=== PATIENT | male | born 1990 | race African-American/Black ===

== ENCOUNTER 2019-01-26 10:31 | Inpatient (IN) | payer BC ==
[2019-01-26 11:46] LABS: ABS Neutrophils 3.6 10^3/ul (1.5-7.7); Hematocrit 47 % (42-52); Hemoglobin 14.9 g/dL (14.0-18.0); Mean Corpuscular HGB Conc 32 g/dL (31-36); Mean Corpuscular Hemoglobin 23 pg (27-31); Mean Corpuscular Volume 72 fL (80-94); Platelet Count 223 10^3/uL (150-450); Red Cell Distribution Width 15 % (10-15); White Blood Count 6.4 10^3/uL (3.5-10.8)
[2019-01-26 12:00] LABS: ALT 13 U/L (7-52); AST 17 U/L (13-39); Albumin 4.6 g/dL (3.2-5.2); Albumin/Globulin Ratio 1.6 (1-3); Alkaline Phosphatase 70 U/L (34-104); Anion Gap 9 mmol/L (2-11); BUN/Creatinine Ratio 12.1 (8-20); Blood Urea Nitrogen 13 mg/dL (6-24); CO2 Carbon Dioxide 24 mmol/L (22-32); Calcium 9.7 mg/dL (8.6-10.3); Chloride 105 mmol/L (101-111); EGFR African American 99.6 (>60); EGFR Non-African American 82.3 (>60); Globulin 2.8 g/dL (2-4); Glucose 82 mg/dL (70-100); Potassium 3.9 mmol/L (3.5-5.0); Sodium 138 mmol/L (135-145); Total Protein 7.4 g/dL (6.4-8.9)
[2019-01-26 12:16] LABS: Acetaminophen < 15 mcg/mL; Alcohol < 10 mg/dL (<10); Salicylate < 2.50 mg/dL (<30)
[2019-01-26 12:24] LABS: ABS Eosinophils 0.3 10^3/ul (0-0.6); ABS Lymphocytes 1.9 10^3/ul (1.0-4.8); ABS Monocytes 0.6 10^3/ul (0-0.8); Eosinophil % 5.4 %; Lymphocyte % 29.5 %; Nucleated Red Blood Cells % 0.2
--- NOTE | 2019-01-26 12:36 | ED ---
Psychiatric Complaint - HPI Summary HPI Summary: This patient is a 28-year-old male presenting to the ED with feelings of hopelessness. He states he has been feeling more depressed recently and recently got out of a relationship. He endorses some suicidal ideation over the past several weeks, however denies this currently. He denies any plan. He does endorse alcohol use, however not within the last 24 hours. He does not see a counselor. He takes no medications. He has never been to [facility] psychiatric facility in the past. He has no past medical history and takes no other medications. - History Of Current Complaint Chief Complaint: EDMentalHealth Time Seen by Provider: 01/26/19 10:41 Hx Obtained From: Patient Onset/Duration: Sudden Onset Timing: Constant Severity Initially: Moderate Severity Currently: Moderate Character: Depressed Aggravating Factor(s): Nothing Alleviating Factor(s): Nothing Associated Signs And Symptoms: Positive: Negative Has Suicidal: Reports: Thoughts - Allergies/Home Medications Allergies/Adverse Reactions: Allergies Allergy/AdvReac Type Severity Reaction Status Date / Time No Known Allergies Allergy Verified 01/26/19 10:39 Home Medications: Home Medications NK [No Home Medications Reported] 01/26/19 [History Confirmed 01/26/19] PMH/Surg Hx/FS Hx/Imm Hx Previously Healthy: Yes - Immunization History Hx Pertussis Vaccination: No Immunizations Up to Date: Yes Infectious Disease History: No Infectious Disease History: Denies: Traveled Outside the [place] in Last 30 Days - Social History Occupation: Unemployed Lives: Alone Alcohol Use: Occasionally Hx Substance Use: No Substance Use Type: Reports: None Hx Tobacco Use: No Smoking Status (MU): Never Smoked Tobacco Review of Systems Negative: Fever, Chills, Fatigue, Skin Diaphoresis Negative: Palpitations, Chest Pain Negative: Shortness Of Breath, Cough Genitourinary: Negative Positive: no symptoms reported, see HPI Negative: Arthralgia, Myalgia Negative: Headache, Weakness, Paresthesia, Numbness Positive: Depressed. Negative: Anxious All Other Systems Reviewed And Are Negative: Yes Physical Exam Triage Information Reviewed: Yes Vital Signs On Initial Exam: Initial Vitals Temp Pulse Resp BP Pulse Ox 98.4 F 77 18 140/94 98 01/26/19 10:38 01/26/19 10:38 01/26/19 10:38 01/26/19 10:38 01/26/19 10:38 Vital Signs Reviewed: Yes Appearance: Positive: Well-Appearing, Well-Nourished Skin: Positive: Warm, Skin Color Reflects Adequate Perfusion Head/Face: Positive: Normal Head/Face Inspection Eyes: Positive: EOMI, TESSA, Conjunctiva Clear Neck: Positive: Supple, No Lymphadenopathy Respiratory/Lung Sounds: Positive: Clear to Auscultation, Breath Sounds Present Cardiovascular: Positive: Pulses are Symmetrical in both Upper and Lower Extremities Musculoskeletal: Positive: Strength/ROM Intact Neurological: Positive: Speech Normal Psychiatric: Positive: Affect/Mood Appropriate, Depressed AVPU Assessment: Alert Procedures - Sedation Patient Received Moderate/Deep Sedation with Procedure: No Diagnostics - Vital Signs Vital Signs Temp Pulse Resp BP Pulse Ox 01/26/19 10:38 98.4 F 77 18 140/94 98 - Laboratory Lab Results: Lab Results 01/26/19 01/26/19 Range/Units 11:25 11:25 WBC 6.4 (3.5-10.8) 10^3/uL RBC 6.50 H (4.18-5.48) 10^6 /uL Hgb 14.9 (14.0-18.0) g/dL Hct 47 (42-52) % MCV 72 L (80-94) fL MCH 23 L (27-31) pg MCHC 32 (31-36) g/dL RDW 15 (10-15) % Plt Count 223 (150-450) 10^3/uL MPV 9.0 (7.4-10.4) fL Neut % (Auto) 55.8 % Lymph % (Auto) 29.5 % Summers % (Auto) 8.8 % Eos % (Auto) 5.4 % Baso % (Auto) 0.5 % Absolute Neuts (auto) 3.6 (1.5-7.7) 10^3/ul Absolute Lymphs (auto) 1.9 (1.0-4.8) 10^3/ul Absolute Monos (auto) 0.6 (0-0.8) 10^3/ul Absolute Eos (auto) 0.3 (0-0.6) 10^3/ul Absolute Basos (auto) 0.0 (0-0.2) 10^3/ul Absolute Nucleated RBC 0.0 10^3/ul Nucleated RBC % 0.2 Sodium 138 (135-145) mmol/L Potassium 3.9 (3.5-5.0) mmol/L Chloride 105 (101-111) mmol/L Carbon Dioxide 24 (22-32) mmol/L Anion Gap 9 (2-11) mmol/L BUN 13 (6-24) mg/dL Creatinine 1.07 (0.67-1.17) mg/dL Est GFR ( Amer) 99.6 (>60) Est GFR (Non-Af Amer) 82.3 (>60) BUN/Creatinine Ratio 12.1 (8-20) Glucose 82 (70-100) mg/dL Calcium 9.7 (8.6-10.3) mg/dL Total Bilirubin 1.30 H (0.2-1.0) mg/dL AST 17 (13-39) U/L ALT 13 (7-52) U/L Alkaline Phosphatase 70 (34-104) U/L Total Protein 7.4 (6.4-8.9) g/dL Albumin 4.6 (3.2-5.2) g/dL Globulin 2.8 (2-4) g/dL Albumin/Globulin Ratio 1.6 (1-3) TSH 0.30 L (0.34-5.60) mcIU/mL Salicylates < 2.50 (<30) mg/dL Acetaminophen < 15 mcg/mL Serum Alcohol < 10 (<10) mg/dL Result Diagrams: 01/26/19 11:25 01/26/19 11:25 Lab Statement: Any lab studies that have been ordered have been reviewed, and results considered in the medical decision making process. Course/Dx - Course Course Of Treatment: Patient's evaluated for depression which is been worsening over the past 2 weeks. He is currently homeless. He states he does drink alcohol, however is not had any alcohol was 24 hours. He denies drug use. Recently got out of a relationship and is feeling more depressed lately. He does endorse some suicidal ideation, however denies is currently. He denies any plan. He states he is safe at this time. He is cleared for mental health evaluation at 11:55 AM. MHE completed. Per Dr. Mancia, will be voluntarily admitted with dx of unspecified depression. - Differential Dx/Clinical Impression Differential Diagnosis/HQI/PQRI: Positive: Depression, Suicidal Ideation Provider Diagnosis: Depression - Physician Notifications Instructed by Provider To: Admit As Inpatient - per Dr. Mancia Discharge ED - Sign-Out/Discharge Documenting (check all that apply): Patient Departure - Discharge Plan Condition: Fair Disposition: ADMITTED TO [facility] - Billing Disposition and Condition Condition: FAIR Disposition: Admitted to [facility] - Attestation Statements Provider Attestation: pt seen by midlevel provider independently, based on their assessment, it was not necessary to present the case to me but I was available for consultation. I did not form a physician-patient relationship with the patient. The chart however, has been reviewed. am signing this note strictly in an administrative capacity.
[2019-01-26] MEDS ORDERED: Acetaminophen TAB* 325 MG PO PRN (23:19)
[2019-01-26] MEDS ORDERED: Al Hydrox/Mg Hydrox/Simet LIQ* 30 ML UDC PO PRN (23:19)
[2019-01-27 06:42] LABS: HDL Cholesterol 33.5 mg/dL
[2019-01-27] MEDS: Vitamin THERAPEUTIC TAB PO SCH (08:44)
[2019-01-27] MEDS ORDERED: Influenza VAC *QUAD* 2019-20* 0.5 ML SYRINGE IM ONE (09:00)
--- NOTE | 2019-01-27 11:09 | HP ---
H&P (Free Text) History and Physical: Justification for admission: Immediate Safety. CC " I cant do it any more" The patient was brought to [facility] by police after he was stopped for not having registration and seemed to be hopeless. The patient reported that over the last month he was evicted, had to give up his cat, and his girlfriend of 1.5 years recently broke up with him. He has been living in his car and is worried that the police towed his car. He plans to call his work and tell them he is in the hospital. The patient reported not having a support network and feels that he pushes help away and is not able to talk about the things that are bothering him. The patient denied access to firearms or stockpiles of medications. The patient reported poor sleep and appetite. The patient denied homicidal ideation intent or plan. The patient denied auditory and/ or visual hallucinations. MDD Reported feeling depressed having crying spells , feeling empty inside, with feelings of hopelessness, and worthlessness.Reported unintentional weight loss and diminished appetite with interruption of sleep. He denied loss of energy and recurrent thoughts of . Anxiety Denied having symptoms of anxiety such as having times where heart feels that it is beating out of chest , sweaty palms, or shallow breathing. Denied having uncomfortable or intrusive thoughts. Denied feeling restless, high strung, or worrying too much most of the time. Bipolar Denied symptoms of jony such as having many ideas at once. Denied increased talkativeness where no one can interrupt. Denied feeling irritable most of the time while having an persistent abundance of energy most of the day without the use of energy drinks, stimulants, or recreational drug use. Denied an increase in intensity in goal directed activities. Denied having the decreased need to sleep for days , having prolonged elevated mood , or feeling on top of the world. Denied impulsive risky sexual encounters. Denied spending money recklessly , going on spending sprees wiping out savings. Denied impulsively traveling out of town or country, having super myles, and unrealistic wealth or fame. Psychosis Does not endorse hearing things that other people do not hear or seeing things other people do not see. Denied feeling that TV is making references. Denied feeling that people are spying , following , or reading their thoughts. Phobias: Patient denied having excessive fear of a particular thing or situation. Eating disorders: Patient denied having excessive eating habits or feelings of guilt after eating. Denied repeated episodes of self induced vomiting after eating. PTSD Denied flashbacks, nightmares and avoidance of a prior traumatic event. PAST PSYCHIATRIC HISTORY: Prior Diagnosis : None History of past Psychiatric Hospitalizations: No prior psychiatric admission. History of past suicide/homicide attempts : 2 past suicide attempts one 3 months ago that involved overdose of pills and attempted to hang himself several years ago. No self injurious behaviors. No history of violence. Outpatient follow-up: None Medications: No past trials of medications Guardianship: None. FAMILY HISTORY: - Suicide: Denied family history of suicide. - Mental illness: Denied a history of mental health in immediate family members. - Substance abuse: Denied substance abuse among family members. SUBSTANCE ABUSE HISTORY: - EtOH: Uses during social occasions no DUIs, blackouts, - Tobacco: 1PPD - Cannabis: Denied - Heroin: Denied - Cocaine: Denied - Substance abuse treatment: Denied past substance abuse treatment SOCIAL HISTORY: - Denied a history of childhood physical and or sexual abuse Born in [place], [place] and raised by his grandmother. - Education: Some College No history of special education. 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 - Legal history: Denied - service history: Denied PAST MEDICAL HISTORY: Denied heart disease, diabetes, cancer and/ or other medical conditions. - Allergies: Denied drug or other allergies. Physical Exam: Please see ED note Mental Status Exam on Admission APPEARANCE : 28 year old male who appears stated age. Patient appears to have fair hygiene and grooming. BEHAVIOR: Cooperative , calm EYE CONTACT: Fair PSYCHOMOTOR ACTIVITY: Mild psychomotor retardation. MOVEMENTS: No abnormal movements observed. SPEECH : slow rate, rhythm, low volume MOOD : "Sad " AFFECT : Type is depressed Range is restricted Mood Congruent THOUGHT PROCESS: Formulated and organized in a logical, linear goal directed manner. No flight of ideas, neologism (made up words) , perseveration , tangential , loose associations , or circumstantiality. THOUGHT CONTENT: no delusions, obsessions, phobias or preoccupations. PERCEPTION: No current auditory or visual hallucinations. Doesnt appear to be responding to internal cues. No evidence of depersonalization , de-realization, or illusions SUICIDALITY Suicidal ideation HOMICIDALITY Denied homicidal ideation, intent or plan. Insight/judgment: Poor insight and judgment ORIENTATION: Oriented to self, location, and time. Diagnosis on Admission: Major depressive disorder, severe. Tobacco use disorder. Assessment: 28 year old male with no prior psychiatric history and current suicidal ideation came to the hospital and was admitted to the BSU at [facility]. Plan #Admit to BSU, Q15 minute observation. Start regular diet. Encourage participation in activities on the milieu. #Patient evaluated in ED and was determined by the emergency room Physician to be medically fit for admission to the BSU. # Justification for Admission: For immediate safety per outlined in the [facility] Hygiene Code. # The patient requires psychiatric inpatient admission at this time to assure safety, receive treatment and work toward stabilization. # Labs ordered: CBC, CMP, UDS, TSH, HBA1c, TSH, Toxicology screen, Urine analysis, and lipid profile. # Start lexapro 10mg daily for depression # Obtain collateral information once release is signed. # Collaboration with Social Work Tobacco use disorder: nicotine supplement offered and put in place. #Goals before discharge include: To eliminate/ reduce suicidal ideation Tentative Discharge: Pending psychiatric stabilization The risks, benefits, and alternative treatment options were discussed as well as the risks of refusing treatment. After this discussion and an acknowledgement of this understanding was made. A risk/ benefit assessment of treatment was considered and discussed with the patient. When comparing the risks of treatment with the dangers of not receiving treatment, the benefits of treatment outweigh the treatment risks at this time. Risks of allergy, suicidal ideation, behavioral changes, dystonia, rashes, electrolyte imbalances, movement disorders, cardiac conduction changes, serotonin syndrome, metabolic risks were among some of the risks discussed. Acetaminophen (Tylenol Tab*) 650 mg PO Q4H PRN PRN Reason: PAIN or TEMP > 101 F Al Hydrox/Mg Hydrox/Simethicone (Maalox Plus*) 30 ml PO Q4H PRN PRN Reason: INDIGESTION Escitalopram Oxalate (Lexapro *) 10 mg PO DAILY [facility] Last Admin: 01/28/19 09:11 Dose: 10 mg Multivitamins (Theragran Tab*) 1 tab PO DAILY [facility] Last Admin: 01/28/19 09:11 Dose: 1 tab Nicotine (Nicotine Patch 21 Mg/24 Hr*) 1 patch TRANSDERM DAILY [facility] Last Admin: 01/28/19 09:13 Dose: 1 patch Pharmacy Profile Note (Nicotine Patch Removal Note*) 1 note FOLLOW UP 0600 [facility] Last Admin: 01/28/19 09:15 Dose: Not Given Sodium 138 mmol/L (135-145) 01/26/19 11:25 Potassium 3.9 mmol/L (3.5-5.0) 01/26/19 11:25 BUN 13 mg/dL (6-24) 01/26/19 11:25 Creatinine 1.07 mg/dL (0.67-1.17) 01/26/19 11:25 Hemoglobin A1c 5.7 % (4.0-5.6) H 01/27/19 05:51 Calcium 9.7 mg/dL (8.6-10.3) 01/26/19 11:25 AST 17 U/L (13-39) 01/26/19 11:25 ALT 13 U/L (7-52) 01/26/19 11:25 Triglycerides 78 mg/dL 01/27/19 05:51 Cholesterol 176 mg/dL 01/27/19 05:51 LDL Cholesterol 127 mg/dL 01/27/19 05:51
[2019-01-27] MEDS: Nicotine PATCH 21 MG/24 HR* PATCH TRANSDERM SCH (11:56)
[2019-01-27] MEDS: Escitalopram * 10 MG TAB PO SCH (12:29)
[2019-01-27 12:37] LABS: Free T4 0.92 ng/dL (0.61-1.12)
[2019-01-28] MEDS ORDERED: Nicotine PATCH 21 MG/24 HR* PATCH TRANSDERM SCH (08:00)
[2019-01-28] MEDS: Vitamin THERAPEUTIC TAB PO SCH (09:11)
[2019-01-28] MEDS: Escitalopram * 10 MG TAB PO SCH (09:11)
[2019-01-28] MEDS: Nicotine PATCH 21 MG/24 HR* PATCH TRANSDERM SCH (09:13)
[2019-01-28] MEDS: Nicotine Patch Removal NOTE FOLLOW UP SCH (09:15)
--- NOTE | 2019-01-28 11:26 | PN ---
Subjective - Subjective Date of Service: 01/28/19 Service Type: 12205 Hosp care 35 min high complexity Subjective: Nursing Report: Patient was visible on unit, no behavioral incidents. Did not Slept overnight. He is attending group activities. CC: "Okay" Patient was seen and evaluated in the common room. The patient reported he feels safe on the unit. He reported having more energy than he usually has and he did not sleep well overnight. He reported having adequate appetite. The patient reports attending and participating in day groups. Per nursing no behavioral issues or overnight events reported. Patient reported that he is tolerating medications without side effects. Objective - General Observations Appearance: Disheveled Appears Stated Age: Yes Stature: WNL Posture: WNL Eye Contact: Avoidant Behavior/Activity: Slowed - Interaction Observations Attitude Towards Examiner: Cooperative Stated Mood: Dysphoric Affect: Blunted Speech Pattern/Tone: Quiet Volume Thought Process: Impoverished Perception: WNL Thought Content: Depressive, Self-Deprecatory Hallucination Type: None Delusion Type: None - Cognitive Function Orientation: A&O x 4 Level of Consciousness: Awake - Medication Compliance Cooperative with Inpatient Medication Regimen: Yes - Group Participation Participates in Group Activities: Yes Assessment - Assessment Merits Inpatient Hospitalization: For Immediate Safety Clinical Impression: 28 year old Male with history of depression came to the hospital with severe depression and suicidal ideation and is currently admitted to the BSU at [facility]. Plan - Plan Treatment Plan: Name: ETHAN OLIVARES Birthdate: 1990 [id number] #Q30 minute observation with staff pass. Patient shows improvement in affect. #Patient evaluated in ED and was determined by the emergency room Physician to be medically fit for admission to the BSU. # Justification for Admission: For immediate safety per outlined in the [place] Mental Hygiene Code. # The patient requires psychiatric inpatient admission at this time to assure safety, receive treatment and work toward stabilization. # Labs ordered: CBC, CMP, UDS, TSH, HBA1c, TSH, Toxicology screen, Urine analysis, and lipid profile. # Start lexapro 10mg daily for depression and remeron 7.5mg qhs for sleep # Obtain collateral information once release is signed. # Collaboration with Social Work Tobacco use disorder: nicotine supplement offered and put in place. #Goals before discharge include: To eliminate/ reduce suicidal ideation Tentative Discharge: Pending psychiatric stabilization The risks, benefits, and alternative treatment options were discussed as well as the risks of refusing treatment. After this discussion and an acknowledgement of this understanding was made. A risk/ benefit assessment of treatment was considered and discussed with the patient. When comparing the risks of treatment with the dangers of not receiving treatment, the benefits of treatment outweigh the treatment risks at this time. Risks of allergy, suicidal ideation, behavioral changes, dystonia, rashes, electrolyte imbalances, movement disorders, cardiac conduction changes, serotonin syndrome, metabolic risks were among some of the risks discussed. Continued Medication Management: Continue Outpt Medication Medications: Current Medications Acetaminophen (Tylenol Tab*) 650 mg PO Q4H PRN PRN Reason: PAIN or TEMP > 101 F Al Hydrox/Mg Hydrox/Simethicone (Maalox Plus*) 30 ml PO Q4H PRN PRN Reason: INDIGESTION Escitalopram Oxalate (Lexapro *) 10 mg PO DAILY [facility] Last Admin: 01/28/19 09:11 Dose: 10 mg Mirtazapine (Remeron Tab*) 7.5 mg PO BEDTIME PRN PRN Reason: SLEEP Multivitamins (Theragran Tab*) 1 tab PO DAILY [facility] Last Admin: 01/28/19 09:11 Dose: 1 tab Nicotine (Nicotine Patch 21 Mg/24 Hr*) 1 patch TRANSDERM DAILY [facility] Last Admin: 01/28/19 09:13 Dose: 1 patch Pharmacy Profile Note (Nicotine Patch Removal Note*) 1 note FOLLOW UP 0600 [facility] Last Admin: 01/28/19 09:15 Dose: Not Given - Discharge Plan Discharge Plan: Inpatient Hospitalization
[2019-01-28] MEDS: Mirtazapine TAB* 15 MG PO PRN (20:42)
[2019-01-29] MEDS: Nicotine PATCH 21 MG/24 HR* PATCH TRANSDERM SCH (08:10)
[2019-01-29] MEDS: Escitalopram * 10 MG TAB PO SCH (08:10)
[2019-01-29] MEDS: Vitamin THERAPEUTIC TAB PO SCH (08:10)
[2019-01-29] MEDS: Nicotine Patch Removal NOTE FOLLOW UP SCH (08:12)
[2019-01-29] MEDS: Mirtazapine TAB* 15 MG PO PRN (21:07)
[2019-01-30] MEDS: Nicotine Patch Removal NOTE FOLLOW UP SCH (06:00)
[2019-01-30] MEDS: Nicotine PATCH 21 MG/24 HR* PATCH TRANSDERM SCH (08:53)
[2019-01-30] MEDS: Escitalopram * 10 MG TAB PO SCH (08:54)
[2019-01-30] MEDS: Vitamin THERAPEUTIC TAB PO SCH (08:54)
--- NOTE | 2019-01-30 17:13 | PN ---
Subjective - Subjective Date of Service: 01/30/19 Service Type: 41980 Hosp care 25 min moderate complexity Subjective: Valdemar was in bed and when asked how was he feeling he reports of feeling angry and didn't show any interest to continue. Hoever denies SI or HI. Objective - General Observations Appearance: Well Groomed Appears Stated Age: Yes Stature: WNL Posture: WNL Eye Contact: Avoidant Behavior/Activity: Agitated - Interaction Observations Attitude Towards Examiner: Evasive Stated Mood: Dysphoric Affect: Restricted Speech Pattern/Tone: Clear, Normal Volume Thought Process: Coherent, Goal Directed Perception: WNL Thought Content: WNL Hallucination Type: Denies Delusion Type: Denies - Cognitive Function Level of Consciousness: Awake, Alert Cognition: WNL Estimated Intelligence: Normal Judgment Within Normal Limits: No Ability to Make Reasonable Decisions: Moderately Impaired - Medication Compliance Cooperative with Inpatient Medication Regimen: Yes - Group Participation Participates in Group Activities: No Assessment - Assessment Clinical Impression: 28 year old Male with history of depression came to the hospital with severe depression and suicidal ideation and is currently admitted to the BSU at [facility]. Plan - Plan Treatment Plan: Name: VALDEMAR OLIVARES Birthdate: 1990 [id number] #Q30 minute observation with staff pass. Patient shows improvement in affect. #Patient evaluated in ED and was determined by the emergency room Physician to be medically fit for admission to the BSU. # Justification for Admission: For immediate safety per outlined in the [place] Mental Hygiene Code. # The patient requires psychiatric inpatient admission at this time to assure safety, receive treatment and work toward stabilization. # Labs ordered: CBC, CMP, UDS, TSH, HBA1c, TSH, Toxicology screen, Urine analysis, and lipid profile. # Start lexapro 10mg daily for depression and remeron 7.5mg qhs for sleep # Obtain collateral information once release is signed. # Collaboration with Social Work Tobacco use disorder: nicotine supplement offered and put in place. #Goals before discharge include: To eliminate/ reduce suicidal ideation Tentative Discharge: Pending psychiatric stabilization The risks, benefits, and alternative treatment options were discussed as well as the risks of refusing treatment. After this discussion and an acknowledgement of this understanding was made. A risk/ benefit assessment of treatment was considered and discussed with the patient. When comparing the risks of treatment with the dangers of not receiving treatment, the benefits of treatment outweigh the treatment risks at this time. Risks of allergy, suicidal ideation, behavioral changes, dystonia, rashes, electrolyte imbalances, movement disorders, cardiac conduction changes, serotonin syndrome, metabolic risks were among some of the risks discussed. Continued Medication Management: Continue Outpt Medication Medications: Current Medications Acetaminophen (Tylenol Tab*) 650 mg PO Q4H PRN PRN Reason: PAIN or TEMP > 101 F Al Hydrox/Mg Hydrox/Simethicone (Maalox Plus*) 30 ml PO Q4H PRN PRN Reason: INDIGESTION Escitalopram Oxalate (Lexapro *) 10 mg PO DAILY [facility] Last Admin: 01/30/19 08:54 Dose: 10 mg Mirtazapine (Remeron Tab*) 7.5 mg PO BEDTIME PRN PRN Reason: SLEEP Last Admin: 01/29/19 21:07 Dose: 7.5 mg Multivitamins (Theragran Tab*) 1 tab PO DAILY [facility] Last Admin: 01/30/19 08:54 Dose: 1 tab Nicotine (Nicotine Patch 21 Mg/24 Hr*) 1 patch TRANSDERM DAILY [facility] Last Admin: 01/30/19 08:53 Dose: 1 patch Pharmacy Profile Note (Nicotine Patch Removal Note*) 1 note FOLLOW UP 0600 [facility] Last Admin: 01/30/19 06:00 Dose: Not Given - Discharge Plan Discharge Plan: Outpatient Follow Up Outpatient Program: [facility]
[2019-01-30] MEDS: Mirtazapine TAB* 15 MG PO PRN (22:23)
[2019-01-31] MEDS: Nicotine Patch Removal NOTE FOLLOW UP SCH (08:54)
[2019-01-31] MEDS: Vitamin THERAPEUTIC TAB PO SCH (08:55)
[2019-01-31] MEDS: Escitalopram * 10 MG TAB PO SCH (08:55)
[2019-01-31] MEDS: Nicotine PATCH 21 MG/24 HR* PATCH TRANSDERM SCH (09:30)
[2019-01-31] MEDS ORDERED: Escitalopram * 10 MG TAB PO ONE (11:00)
[2019-01-31] MEDS ORDERED: Mirtazapine TAB* 15 MG PO PRN (15:08)
--- NOTE | 2019-01-31 15:08 | PN ---
Subjective - Subjective Date of Service: 01/31/19 Service Type: 70560 Hosp care 35 min high complexity Subjective: Nursing Report: Patient was visible on unit, no behavioral incidents. Did not Slept overnight. He is attending group activities. CC: "so- so " Patient was seen and evaluated in the common room. The patient reported he feels safe on the unit but has not interacted much with others. He is unable to identify someone in his life that he considers to be a source of support. Patient reported feeling stressed out to learn that his car was towed. He reported having adequate appetite. The patient reports attending and participating in day groups. Per nursing no behavioral issues or overnight events reported. Patient reported that he is tolerating medications without side effects. Objective - General Observations Appearance: Neat Appears Stated Age: Yes Stature: WNL Posture: Slumped Eye Contact: Avoidant Behavior/Activity: Slowed - Interaction Observations Attitude Towards Examiner: Cooperative Stated Mood: Dysphoric Affect: Blunted Speech Pattern/Tone: Quiet Volume Thought Process: Impoverished Perception: WNL Thought Content: Self-Deprecatory Thought Process: Lethality: Passive Wish Hallucination Type: None Delusion Type: None - Cognitive Function Orientation: A&O x 4 - Medication Compliance Cooperative with Inpatient Medication Regimen: Yes - Group Participation Participates in Group Activities: Yes Assessment - Assessment Merits Inpatient Hospitalization: For Immediate Safety Clinical Impression: 28 year old Male with history of depression came to the hospital with severe depression and suicidal ideation and is currently admitted to the BSU at [facility]. Plan - Plan Treatment Plan: Name: ETHAN OLIVARES Birthdate: 1990 [id number] #Q30 minute observation with staff pass and computer. #The patient requires psychiatric inpatient admission at this time to assure safety, receive treatment and work toward stabilization. # Increase lexapro to 20mg daily for depression and remeron 15mg qhs for sleep # Obtain collateral information once release is signed. # Collaboration with Social Work Tobacco use disorder: nicotine supplement offered and put in place. #Goals before discharge include: To eliminate/ reduce suicidal ideation Tentative Discharge: Pending psychiatric stabilization The risks, benefits, and alternative treatment options were discussed as well as the risks of refusing treatment. After this discussion and an acknowledgement of this understanding was made. A risk/ benefit assessment of treatment was considered and discussed with the patient. When comparing the risks of treatment with the dangers of not receiving treatment, the benefits of treatment outweigh the treatment risks at this time. Risks of allergy, suicidal ideation, behavioral changes, dystonia, rashes, electrolyte imbalances, movement disorders, cardiac conduction changes, serotonin syndrome, metabolic risks were among some of the risks discussed. Continued Medication Management: Continue Outpt Medication Medications: Current Medications Acetaminophen (Tylenol Tab*) 650 mg PO Q4H PRN PRN Reason: PAIN or TEMP > 101 F Al Hydrox/Mg Hydrox/Simethicone (Maalox Plus*) 30 ml PO Q4H PRN PRN Reason: INDIGESTION Escitalopram Oxalate (Lexapro *) 20 mg PO DAILY [facility] Mirtazapine (Remeron Tab*) 7.5 mg PO BEDTIME PRN PRN Reason: SLEEP Last Admin: 01/30/19 22:23 Dose: 7.5 mg Multivitamins (Theragran Tab*) 1 tab PO DAILY [facility] Last Admin: 01/31/19 08:55 Dose: 1 tab Nicotine (Nicotine Patch 21 Mg/24 Hr*) 1 patch TRANSDERM DAILY [facility] Last Admin: 01/31/19 09:30 Dose: Not Given Pharmacy Profile Note (Nicotine Patch Removal Note*) 1 note FOLLOW UP 0600 [facility] Last Admin: 01/31/19 08:54 Dose: 1 note - Discharge Plan Discharge Plan: Inpatient Hospitalization Outpatient Program: Private Clinician(s)
[2019-02-01] MEDS ORDERED: Lorazepam PYXIS KEY ONE (01:46)
[2019-02-01] MEDS: Nicotine PATCH 21 MG/24 HR* PATCH TRANSDERM SCH (08:43)
[2019-02-01] MEDS: Escitalopram * 20 MG TABLET PO SCH (08:44)
[2019-02-01] MEDS: Vitamin THERAPEUTIC TAB PO SCH (08:44)
[2019-02-01] MEDS: Nicotine Patch Removal NOTE FOLLOW UP SCH (08:45)
--- NOTE | 2019-02-01 14:11 | PN ---
Subjective - Subjective Date of Service: 02/01/19 Service Type: [id number] Hosp care 35 min high complexity Subjective: Nursing Report: Patient was visible on unit, no behavioral incidents. Poor sleep overnight and stays in bed most of the morning and afternoon CC: "I dont know what to do" Patient was seen and evaluated in the common room. The patient reported he doesnt speak with many people and doesnt ask for help. He reported not feeling any different than before. He reported having adequate appetite and poor sleep. Per nursing no behavioral issues or overnight events reported. Patient reported that he is tolerating medications without side effects. Objective - General Observations Appearance: Neat Appears Stated Age: Yes Stature: WNL Posture: Slumped Eye Contact: Avoidant Behavior/Activity: Slowed - Interaction Observations Attitude Towards Examiner: Anxious Stated Mood: Dysphoric Speech Pattern/Tone: Quiet Volume Thought Process: Impoverished Perception: WNL Thought Content: Self-Deprecatory Hallucination Type: None Delusion Type: None - Cognitive Function Orientation: A&O x 4 Level of Consciousness: Awake - Medication Compliance Cooperative with Inpatient Medication Regimen: Yes - Group Participation Participates in Group Activities: Partial Assessment - Assessment Merits Inpatient Hospitalization: For Immediate Safety Clinical Impression: 28 year old Male with history of depression came to the hospital with severe depression and suicidal ideation and is currently admitted to the BSU at [facility]. Plan - Plan Treatment Plan: Name: ETHAN OLIVARES Birthdate: 1990 [id number] #Q30 minute observation with staff pass and computer. #The patient requires psychiatric inpatient admission at this time to assure safety, receive treatment and work toward stabilization. # Continue lexapro to 20mg daily for depression # Start ambien 5mg qhs for sleep # D/C remeron # Obtain collateral information from his sister who plans to involve his family in his care. Patients baseline includes isolating himself and not asking for help. His sister lives in [place] and does not plan to come visit. # Collaboration with Social Work for follow up care plan Tobacco use disorder: nicotine supplement offered and put in place. #Goals before discharge include: To eliminate/ reduce suicidal ideation Tentative Discharge: Pending psychiatric stabilization The risks, benefits, and alternative treatment options were discussed as well as the risks of refusing treatment. After this discussion and an acknowledgement of this understanding was made. A risk/ benefit assessment of treatment was considered and discussed with the patient. When comparing the risks of treatment with the dangers of not receiving treatment, the benefits of treatment outweigh the treatment risks at this time. Risks of allergy, suicidal ideation, behavioral changes, dystonia, rashes, electrolyte imbalances, movement disorders, cardiac conduction changes, serotonin syndrome, metabolic risks were among some of the risks discussed. Sodium 138 mmol/L (135-145) 01/26/19 11:25 Potassium 3.9 mmol/L (3.5-5.0) 01/26/19 11:25 BUN 13 mg/dL (6-24) 01/26/19 11:25 Creatinine 1.07 mg/dL (0.67-1.17) 01/26/19 11:25 Hemoglobin A1c 5.7 % (4.0-5.6) H 01/27/19 05:51 Calcium 9.7 mg/dL (8.6-10.3) 01/26/19 11:25 AST 17 U/L (13-39) 01/26/19 11:25 ALT 13 U/L (7-52) 01/26/19 11:25 Triglycerides 78 mg/dL 01/27/19 05:51 Cholesterol 176 mg/dL 01/27/19 05:51 LDL Cholesterol 127 mg/dL 01/27/19 05:51 Continued Medication Management: Continue Outpt Medication Medications: Current Medications Acetaminophen (Tylenol Tab*) 650 mg PO Q4H PRN PRN Reason: PAIN or TEMP > 101 F Al Hydrox/Mg Hydrox/Simethicone (Maalox Plus*) 30 ml PO Q4H PRN PRN Reason: INDIGESTION Escitalopram Oxalate (Lexapro *) 20 mg PO DAILY [facility] Last Admin: 02/01/19 08:44 Dose: 20 mg Multivitamins (Theragran Tab*) 1 tab PO DAILY [facility] Last Admin: 02/01/19 08:44 Dose: 1 tab Nicotine (Nicotine Patch 21 Mg/24 Hr*) 1 patch TRANSDERM DAILY [facility] Last Admin: 02/01/19 08:43 Dose: 1 patch Pharmacy Profile Note (Nicotine Patch Removal Note*) 1 note FOLLOW UP 0600 [facility] Last Admin: 02/01/19 08:45 Dose: Not Given Zolpidem Tartrate (Ambien Tab*) 5 mg PO BEDTIME PRN PRN Reason: INSOMNIA - Discharge Plan Discharge Plan: Inpatient Hospitalization
[2019-02-01] MEDS: Zolpidem TAB* 5 MG PO PRN (21:13)
[2019-02-02] MEDS: Nicotine PATCH 21 MG/24 HR* PATCH TRANSDERM SCH (08:19)
[2019-02-02] MEDS: Escitalopram * 20 MG TABLET PO SCH (08:19)
[2019-02-02] MEDS: Vitamin THERAPEUTIC TAB PO SCH (08:20)
[2019-02-02] MEDS: Nicotine Patch Removal NOTE FOLLOW UP SCH (08:23)
[2019-02-02] MEDS: Nicotine* 2MG (FRUIT FLAVOR) GUM PO PRN ×4 (12:01→20:43)
--- NOTE | 2019-02-02 16:48 | PN ---
BSU: Group Therapy Note - Service Type Service Type: [id number] Group Psychotherapy - Group Participation Patient Participating in Group: Yes Level of Group Participation: Attentive, Spontaneously Participate Relatedness to Group: Well Related - Additional Group Comments Group Comments: Valdemar was among the most participatory attendees. The medication education group was interesting to him as it was relevant to a number of questions he had. He was polite and appropriate.
[2019-02-02] MEDS: Zolpidem TAB* 5 MG PO PRN (22:24)
[2019-02-03] MEDS: Nicotine Patch Removal NOTE FOLLOW UP SCH (08:38)
[2019-02-03] MEDS: Nicotine* 2MG (FRUIT FLAVOR) GUM PO PRN ×3 (08:42→19:14)
[2019-02-03] MEDS: Escitalopram * 20 MG TABLET PO SCH (08:42)
[2019-02-03] MEDS: Nicotine PATCH 21 MG/24 HR* PATCH TRANSDERM SCH (08:42)
[2019-02-03] MEDS: Vitamin THERAPEUTIC TAB PO SCH (08:42)
--- NOTE | 2019-02-03 15:09 | PN ---
Subjective - Subjective Date of Service: 02/03/19 Service Type: [id number] Hosp care 35 min high complexity Subjective: Nursing Report: Patient was visible on unit, no behavioral incidents. Slept 5 hours He is attending group activities. CC: "Better" Patient was seen and evaluated in the common room. The patient reported he feels better and plans to stay at his mothers house. He was seen pacing the hallway. He reported having adequate appetite and received 5 hours of sleep. The patient reports attending and participating in day groups. Per nursing no behavioral issues or overnight events reported. Patient reported that he is tolerating medications without side effects. Objective - General Observations Appearance: Disheveled Appears Stated Age: Yes Stature: WNL Posture: WNL Eye Contact: Average Behavior/Activity: WNL - Interaction Observations Attitude Towards Examiner: Cooperative Stated Mood: Euthymic Affect: Restricted Speech Pattern/Tone: Clear Thought Process: Coherent Perception: WNL Thought Content: WNL Hallucination Type: None Delusion Type: None - Cognitive Function Orientation: A&O x 4 Level of Consciousness: Awake Cognition: WNL - Medication Compliance Cooperative with Inpatient Medication Regimen: Yes - Group Participation Participates in Group Activities: Yes Assessment - Assessment Merits Inpatient Hospitalization: For Immediate Safety Clinical Impression: 28 year old Male with history of depression came to the hospital with severe depression and suicidal ideation and is currently admitted to the BSU at [facility]. Plan - Plan Treatment Plan: Name: ETHAN OLIVARES Birthdate: 1990 [id number] #Q30 minute observation with staff pass and computer. #The patient requires psychiatric inpatient admission at this time to assure safety, receive treatment and work toward stabilization. # Continue lexapro to 20mg daily for depression # D/C remeron and start trazodone 50mg qhs for sleep # Obtain collateral information from his mother obtained who confirmed no firearms and he will be staying with her. # Collaboration with Social Work for follow up care at [facility] Tobacco use disorder: nicotine supplement offered and put in place. #Goals before discharge include: To eliminate/ reduce suicidal ideation Tentative Discharge: Tomorrow The risks, benefits, and alternative treatment options were discussed as well as the risks of refusing treatment. After this discussion and an acknowledgement of this understanding was made. A risk/ benefit assessment of treatment was considered and discussed with the patient. When comparing the risks of treatment with the dangers of not receiving treatment, the benefits of treatment outweigh the treatment risks at this time. Risks of allergy, suicidal ideation, behavioral changes, dystonia, rashes, electrolyte imbalances, movement disorders, cardiac conduction changes, serotonin syndrome, metabolic risks were among some of the risks discussed. Sodium 138 mmol/L (135-145) 01/26/19 11:25 Potassium 3.9 mmol/L (3.5-5.0) 01/26/19 11:25 BUN 13 mg/dL (6-24) 01/26/19 11:25 Creatinine 1.07 mg/dL (0.67-1.17) 01/26/19 11:25 Hemoglobin A1c 5.7 % (4.0-5.6) H 01/27/19 05:51 Calcium 9.7 mg/dL (8.6-10.3) 01/26/19 11:25 AST 17 U/L (13-39) 01/26/19 11:25 ALT 13 U/L (7-52) 01/26/19 11:25 Triglycerides 78 mg/dL 01/27/19 05:51 Cholesterol 176 mg/dL 01/27/19 05:51 LDL Cholesterol 127 mg/dL 01/27/19 05:51 Continued Medication Management: Continue Outpt Medication Medications: Current Medications Acetaminophen (Tylenol Tab*) 650 mg PO Q4H PRN PRN Reason: PAIN or TEMP > 101 F Al Hydrox/Mg Hydrox/Simethicone (Maalox Plus*) 30 ml PO Q4H PRN PRN Reason: INDIGESTION Escitalopram Oxalate (Lexapro *) 20 mg PO DAILY [facility] Last Admin: 02/03/19 08:42 Dose: 20 mg Multivitamins (Theragran Tab*) 1 tab PO DAILY [facility] Last Admin: 02/03/19 08:42 Dose: 1 tab Nicotine (Nicotine Patch 21 Mg/24 Hr*) 1 patch TRANSDERM DAILY [facility] Last Admin: 02/03/19 08:42 Dose: 1 patch Nicotine Polacrilex (Nicotine Gum*) 2 mg PO Q2H PRN PRN Reason: CRAVING Last Admin: 02/03/19 08:42 Dose: 2 mg Pharmacy Profile Note (Nicotine Patch Removal Note*) 1 note FOLLOW UP 0600 [facility] Last Admin: 11/14/19 08:38 Dose: Not Given Trazodone HCl (Desyrel Tab*) 50 mg PO BEDTIME [facility] - Discharge Plan Discharge Plan: Inpatient Hospitalization
[2019-02-03] MEDS ORDERED: traZODone TAB* 50 MG TAB PO SCH (21:00)
[2019-02-04] MEDS: Nicotine PATCH 21 MG/24 HR* PATCH TRANSDERM SCH (08:50)
[2019-02-04] MEDS: Vitamin THERAPEUTIC TAB PO SCH (08:51)
[2019-02-04] MEDS: Escitalopram * 20 MG TABLET PO SCH (08:51)
[2019-02-04] MEDS: Nicotine Patch Removal NOTE FOLLOW UP SCH (08:51)
--- NOTE | 2019-02-04 10:19 | DS ---
Subjective - Subjective Service Types: [address] [facility] over 30 min Discharge Date: 02/04/19 Subjective: CC: " I am doing better" Patient looks forward to seeing his children and going back to work. He reported improvement of sleep last evening. The patient was seen and evaluated before discharge today. The patient reported having adequate appetite and sleep. The patient reports attending and participating in day groups. Per nursing no behavioral issues or overnight events reported. Patient reported tolerating medications without side effects. Justification for admission: Immediate Safety. CC " I cant do it any more" The patient was brought to [facility] by police after he was stopped for not having registration and seemed to be hopeless. The patient reported that over the last month he was evicted, had to give up his cat, and his girlfriend of 1.5 years recently broke up with him. He has been living in his car and is worried that the police towed his car. He plans to call his work and tell them he is in the hospital. The patient reported not having a support network and feels that he pushes help away and is not able to talk about the things that are bothering him. The patient denied access to firearms or stockpiles of medications. The patient reported poor sleep and appetite. The patient denied homicidal ideation intent or plan. The patient denied auditory and/ or visual hallucinations. MDD Reported feeling depressed having crying spells , feeling empty inside, with feelings of hopelessness, and worthlessness.Reported unintentional weight loss and diminished appetite with interruption of sleep. He denied loss of energy and recurrent thoughts of . Anxiety Denied having symptoms of anxiety such as having times where heart feels that it is beating out of chest , sweaty palms, or shallow breathing. Denied having uncomfortable or intrusive thoughts. Denied feeling restless, high strung, or worrying too much most of the time. Bipolar Denied symptoms of jony such as having many ideas at once. Denied increased talkativeness where no one can interrupt. Denied feeling irritable most of the time while having an persistent abundance of energy most of the day without the use of energy drinks, stimulants, or recreational drug use. Denied an increase in intensity in goal directed activities. Denied having the decreased need to sleep for days , having prolonged elevated mood , or feeling on top of the world. Denied impulsive risky sexual encounters. Denied spending money recklessly , going on spending sprees wiping out savings. Denied impulsively traveling out of town or country, having super myles, and unrealistic wealth or fame. Psychosis Does not endorse hearing things that other people do not hear or seeing things other people do not see. Denied feeling that TV is making references. Denied feeling that people are spying , following , or reading their thoughts. Phobias: Patient denied having excessive fear of a particular thing or situation. Eating disorders: Patient denied having excessive eating habits or feelings of guilt after eating. Denied repeated episodes of self induced vomiting after eating. PTSD Denied flashbacks, nightmares and avoidance of a prior traumatic event. PAST PSYCHIATRIC HISTORY: Prior Diagnosis : None History of past Psychiatric Hospitalizations: No prior psychiatric admission. History of past suicide/homicide attempts : 2 past suicide attempts one 3 months ago that involved overdose of pills and attempted to hang himself several years ago. No self injurious behaviors. No history of violence. Outpatient follow-up: None Medications: No past trials of medications Guardianship: None. FAMILY HISTORY: - Suicide: Denied family history of suicide. - Mental illness: Denied a history of mental health in immediate family members. - Substance abuse: Denied substance abuse among family members. SUBSTANCE ABUSE HISTORY: - EtOH: Uses during social occasions no DUIs, blackouts, - Tobacco: 1PPD - Cannabis: Denied - Heroin: Denied - Cocaine: Denied - Substance abuse treatment: Denied past substance abuse treatment SOCIAL HISTORY: - Denied a history of childhood physical and or sexual abuse Born in [place], [place] and raised by his grandmother. - Education: Some College No history of special education. 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 - Legal history: Denied - service history: Denied PAST MEDICAL HISTORY: Denied heart disease, diabetes, cancer and/ or other medical conditions. - Allergies: Denied drug or other allergies. Physical Exam: Please see ED note Mental Status Exam on Admission APPEARANCE : 28 year old male who appears stated age. Patient appears to have fair hygiene and grooming. BEHAVIOR: Cooperative , calm EYE CONTACT: Fair PSYCHOMOTOR ACTIVITY: Mild psychomotor retardation. MOVEMENTS: No abnormal movements observed. SPEECH : slow rate, rhythm, low volume MOOD : "Sad " AFFECT : Type is depressed Range is restricted Mood Congruent THOUGHT PROCESS: Formulated and organized in a logical, linear goal directed manner. No flight of ideas, neologism (made up words) , perseveration , tangential , loose associations , or circumstantiality. THOUGHT CONTENT: no delusions, obsessions, phobias or preoccupations. PERCEPTION: No current auditory or visual hallucinations. Doesnt appear to be responding to internal cues. No evidence of depersonalization , de-realization, or illusions SUICIDALITY Suicidal ideation HOMICIDALITY Denied homicidal ideation, intent or plan. Insight/judgment: Poor insight and judgment ORIENTATION: Oriented to self, location, and time. Diagnosis on Admission: Major depressive disorder, severe. Tobacco use disorder. Diagnosis on Discharge: Major depressive disorder, in partial remission. Tobacco use disorder. Condition at the time of discharge: At the time of discharge patient showed improvement of sleep and appetite. The patient was not a danger to self or others. The patient denied suicidal ideation, intent or plan. The patient denied homicidal targets, ideation, intent or plan. This patient participated in psychosocial rehabilitation and gained some insight into problems. The patient gained insight into mental illness, triggers, and treatment. The patient took medication as prescribed. The patient denied side effects of medication and objective signs of side effects were not evident. Therapy Resources were offered to the patient. Patient was given a supply of prescriptions at the time of discharge. The patient plans to attend follow up care with the follow up arrangements that were discussed and put in place. Patient was asked to keep appointments as scheduled, take medication as prescribed, have routine follow up care with their primary care physician and refrain from any use of alcohol or drugs. Objective - General Observations Appearance: Neat Appears Stated Age: Yes Stature: WNL Posture: WNL Eye Contact: Average Behavior/Activity: WNL - Interaction Observations Attitude Towards Examiner: Cooperative Stated Mood: Euthymic Affect: Full Speech Pattern/Tone: Appropriate Thought Process: Coherent Perception: WNL Thought Content: WNL Hallucination Type: None Delusion Type: None - Cognitive Function Orientation: A&O x 4 Level of Consciousness: Awake Judgment Within Normal Limits: Yes - Medication Compliance Cooperative with Inpatient Medication Regimen: Yes - Group Participation Participates in Group Activities: Yes Treatment Course & Assessment Clinical Course & Impression: Hospital course part A: 28 year old Male with history of depression came to the hospital with severe depression and suicidal ideation and is currently admitted to the B[facility] at [facility]. Hospital course part B: Labs ordered included CBC, CMP, UDS, TSH, HBA1c, TSH, Toxicology screen, Urine analysis, and lipid profile. Labs were reviewed and did not require the need for further evaluation. Vital signs were monitored during the course of admission. The patient was admitted to the adult behavioral unit and placed on 15 minute check for safety. At a later time the patient was on Q30 minute observation and staff pass privileges. With those limits being extended, patient was safe on all checks and there were no occurrence of behavioral incidents. The patient did well on the unit and went to groups. Interacted with peers had adequate sleep and regular appetite. Tolerated medication changes without side effects. Group therapy and services were offered. The risks, benefits, and alternative treatment options were discussed as well as of the risks of refusing treatment. Treatment associated risks discussed. After this discussion made an acknowledgement of this understanding. Follow up care appointments were put in place. The importance of monitoring for metabolic changes was discussed and acknowledgement of this understanding was made. The patient was informed not to abruptly stop or start new medications before consulting with a medical professional. Improvements in patient from the time of admission include: Improved affect, sleep and decrease in anxiety. The patient expressed readiness for discharge home. The patient presents with a broader range of affect, and the absence of depressed mood, delusions, perceptual disturbance. The patient denied suicidal and or homicidal ideation intent or plan. Overall, the patient responded well to inpatient treatment as evidenced by their report of strengthening of coping mechanisms, reduced distress, and more positive outlook on circumstances. Of note there was an improvement of recognizing how emotional state can effect mood and behavior. Patient plans to live with his mother after discharge. Over the course of hospitalization he was improve on verbalizing his needs and emotional affect displayed full range. Patient plans to return to work next week . Patient made observations about when he is not doing well which included isolating himself. When he notices this he plans to therapist , talk to family and call crisis line or 911 in the event of a crisis. Safety precautions were put in place which included involving the patient and their family to closely monitor for changes in mental state. In addition, implementing follow up care, screening for the need to remove/securing firearms , weapons and stockpile of medications. Patient/ family instructed to immediately call 911 should any safety concerns arise. The patient was advised of the 24 hour / 7 days a week availability of the emergency room and to call 911 in the event of an emergency such as being suicidal and/ or homicidal. The patient was informed of the contact information for [facility], Suicide Prevention and Crisis Services, National Suicide Prevention Lifeline, [facility], Alcoholics Anonymous, and [facility]. AIMs score insignificant. Medications started included lexapro 20mg po daily. Seroquel, ambien, and remeron were trialed for sleep which was discontinued and trazodone 50mg qhs was started and helped with sleep. Nicotine replacement was provided to decrease nicotine cravings. Patient informed of the dangers of smoking and offered nicotine cessation resources and declined. Nicotine replacement was provided to decrease nicotine cravings. Family was contacted before discharge. His sister and mother were involved in his care plan. The family provided the patients baseline. At this time both the patient and family are eager for discharge and are in agreement with the discharge plan set forth by the treatment team and can safely receive care in the less restrictive outpatient setting. They were advised on how the days following discharge can be a vulnerable period and to look out for warning signs associated with decompensation and progression of mental illness. They were notified of the resources available in the event these situations arise and confirmed that the patient has no access to firearms or stockpiles of medications. Patient was not assaultive or a behavioral problem during the course of admission. The patient showed improvement of hygiene and was able to carry out activities of daily living. Patient will be discharged to live at his mothers home in [place]. [facility] up [facility] Patient informed of follow up appointment times. See more details for follow up care in the discharge plan. Risk factors were mitigated by establishing the patients baseline with close contacts and involving his family in his treatment plan. Implementing precautionary safety measures by confirming no stockpiles of medications and no access to firearms , providing mental health treatment, stabilization of depressive features, arrangement of outpatient continuation of care, as well as provided a supportive care environment and therapy resources during the course of hospitalization. Relationship stressors were addressed. Safety plan was reviewed and discussed with the patient. Risk factors: , single, depressive disorder. Recent relationship change. Prior suicide attempts Protective factors: Currently no suicidal ideation, intent or plan. Has family support system. No history of service. Has children, Currently no feelings of hopelessness, not in an occupation of social isolation, doesnt have multiple medical conditions, no family history of suicide, doesnt have access to firearms. Doesnt have command hallucinations and or psychotic features at this time. No current substance abuse. No alcohol abuse. Not an anniversary of a loss of a loved one. Patient engaged in treatment and compliant with medication. Sodium 138 mmol/L (135-145) 01/26/19 11:25 Potassium 3.9 mmol/L (3.5-5.0) 01/26/19 11:25 BUN 13 mg/dL (6-24) 01/26/19 11:25 Creatinine 1.07 mg/dL (0.67-1.17) 01/26/19 11:25 Hemoglobin A1c 5.7 % (4.0-5.6) H 01/27/19 05:51 Calcium 9.7 mg/dL (8.6-10.3) 01/26/19 11:25 AST 17 U/L (13-39) 01/26/19 11:25 ALT 13 U/L (7-52) 01/26/19 11:25 Triglycerides 78 mg/dL 01/27/19 05:51 Cholesterol 176 mg/dL 01/27/19 05:51 LDL Cholesterol 127 mg/dL 01/27/19 05:51 Merits Inpatient Hospitalization: No Clear for Discharge: Adequate Clinical Respons Discharge Planning - Discharge Planning Discharge Plan: Outpatient Follow Up Outpatient Program: [facility] Recommendations for Continuing Care: Medication Management Medications: Current Medications Acetaminophen (Tylenol Tab*) 650 mg PO Q4H PRN PRN Reason: PAIN or TEMP > 101 F Al Hydrox/Mg Hydrox/Simethicone (Maalox Plus*) 30 ml PO Q4H PRN PRN Reason: INDIGESTION Escitalopram Oxalate (Lexapro *) 20 mg PO DAILY [facility] Last Admin: 02/04/19 08:51 Dose: 20 mg Multivitamins (Theragran Tab*) 1 tab PO DAILY [facility] Last Admin: 02/04/19 08:51 Dose: 1 tab Nicotine (Nicotine Patch 21 Mg/24 Hr*) 1 patch TRANSDERM DAILY [facility] Last Admin: 02/04/19 08:50 Dose: 1 patch Nicotine Polacrilex (Nicotine Gum*) 2 mg PO Q2H PRN PRN Reason: CRAVING Last Admin: 02/03/19 19:14 Dose: 2 mg Pharmacy Profile Note (Nicotine Patch Removal Note*) 1 note FOLLOW UP 0600 [facility] Last Admin: 02/04/19 08:51 Dose: Not Given Trazodone HCl (Desyrel Tab*) 50 mg PO BEDTIME [facility] Last Admin: 02/03/19 20:41 Dose: 50 mg Discharge Planning: Prescriptions provided for discharge [x] Yes [] No Follow up care details as per social work arrangements. Patient response to discharge plan: [x] eager for discharge [] agreeable with discharge plan [] ambivalent about discharge [] disagrees with discharge today
[2019-02-04 10:36] VITALS: BP 130/71
== END 2019-02-04 14:33 | disposition home or self-care (01) | DRG 751 ==
LOC: ED 10:31 → BSU 14:08
PROVIDERS: ADMIT Psychiatry & Neurology Psychiatry; ATTEND Psychiatry & Neurology Psychiatry
DX: F33.2 Major depressive disorder, recurrent severe without psychotic features (principal); R45.851 Suicidal ideations; F17.210 Nicotine dependence, cigarettes, uncomplicated; Z59.0 Homelessness
CPT/HCPCS: 36415; 80053; 80061; 80320; 80329; 83036; 84439; 84443; 85025; 90686; 90853; 99222; 99232; 99233; 99238; 99284; A9270-GY; G0480